=== PATIENT | male | born 1980 | race American Indian/Alaskan Native ===

== ENCOUNTER 2017-10-15 19:21 | Emergency (ER) | payer BC ==
[2017-10-15 19:40] VITALS: PULSE 78; RESP 18
[2017-10-15] MEDS ORDERED: Naproxen 550 mg Tab PO STA (20:10)
--- NOTE | 2017-10-15 20:13 | C.PDOC ---
History Of Present Illness Pt feels a painful lump in left upper neck. Time Seen by Provider: 10/15/17 20:02 Chief Complaint (Nursing): ENT Problem History Per: Patient Onset/Duration Of Symptoms: Days (1) Current Symptoms Are (Timing): Still Present Severity: Moderate Past Medical History Reviewed: Historical Data, Nursing Documentation, Vital Signs Vital Signs: Last Vital Signs Temp 99.3 F 10/15/17 19:37 Pulse 78 10/15/17 19:37 Resp 18 10/15/17 19:37 BP 149/86 10/15/17 19:37 Pulse Ox 99 10/15/17 19:37 - Medical History PMH: HTN, Hypercholesterolemia Other Surgeries: Ex. Lap. Family History: States: Unknown Family Hx - Social History Hx Tobacco Use: Yes Hx Alcohol Use: Yes Hx Substance Use: No - Immunization History Hx Tetanus Toxoid Vaccination: No Hx Influenza Vaccination: No Review Of Systems Except As Marked, All Systems Reviewed And Found Negative. Constitutional: Negative for: Fever, Weakness ENT: Positive for: Nose Congestion, Throat Pain (?). Negative for: Ear Pain Cardiovascular: Negative for: Chest Pain Respiratory: Negative for: Cough, Shortness of Breath Gastrointestinal: Negative for: Vomiting Musculoskeletal: Negative for: Neck Pain Skin: Negative for: Rash Neurological: Negative for: Weakness, Numbness Physical Exam - Physical Exam Appears: Non-toxic, No Acute Distress Skin: Normal Color, Warm, Dry, No Rash Head: Atraumatic, Normacephalic Eye(s): bilateral: Normal Inspection, PERRL, EOMI Ear(s): Bilateral: Normal Oral Mucosa: Moist, No Drooling, No Trismus Tongue: Normal Appearing Lips: Normal Appearing Teeth: No Tender To Palpation Gingiva: No Abscess Throat: Normal Neck: Normal ROM, Supple Lymphatic: Adenopathy (Enlarged/tender left submandibular node) Cardiovascular: Rhythm Regular Respiratory: Normal Breath Sounds, No Accessory Muscle Use, No Stridor Extremity: Normal ROM Neurological/Psych: Oriented x3, Normal Speech, Normal Motor, Normal Sensation ED Course And Treatment O2 Sat by Pulse Oximetry: 99 Pulse Ox Interpretation: Normal Disposition Counseled Patient/Family Regarding: Diagnosis, Need For Followup, Rx Given, Smoking Cessation - Disposition Referrals: Rubio Diaz MD [Staff Provider] - Disposition: HOME/ ROUTINE Disposition Time: 20:14 Condition: STABLE Additional Instructions: Follow up with your doctor for further evaluation and treatment. Follow up with an ENT specialist. Return to the ER if you develop high fever, trouble breathing or swallowing, worsening of symptoms or if you have any other concerns. Prescriptions: Amoxicillin/Clavulanate [Augmentin 875 MG-125 MG] 1 tab PO BID #14 tab Naproxen [Naprosyn] 1 tab PO BID PRN #20 tab PRN Reason: Pain Forms: [facility] ([place]), General Discharge Instructions - Clinical Impression Clinical Impression: Submandibular lymphadenitis
[2017-10-15] MEDS ORDERED: Naproxen 550 mg Tab PO ONE (20:28)
[2017-10-15 20:33] VITALS: BP 148/86; TEMP 99; O2SAT 100
== END 2017-10-15 20:33 | disposition home or self-care (01) ==
LOC: C.ER 19:21
DX: I88.9 Nonspecific lymphadenitis, unspecified (principal)